=== PATIENT | female | born 1970 | race Caucasian/White ===

== ENCOUNTER 2020-10-25 17:09 | Observation (INO) | payer BC, SELFPAY ==
[2020-10-25] VITALS (9 sets, daily range): BP systolic 106–145; BP diastolic 71–88; PULSE 78–109; RESP 17–23; TEMP 36.6–37.2; O2SAT 95–99; BMI 22.7
--- NOTE | 2020-10-25 17:32 | CTR_ITS ---
PROCEDURE INFORMATION: Exam: CT Abdomen And Pelvis With Contrast Exam date and time: 10/25/2020 6:43 PM Age: 50 years old Clinical indication: Prior surgery; Surgery type: ; Patient HX: Fatigue x months; Additional info: Abd pain TECHNIQUE: Imaging protocol: Computed tomography of the abdomen and pelvis with contrast. Radiation optimization: All CT scans at this facility use at least one of these dose optimization techniques: automated exposure control; mA and/or kV adjustment per patient size (includes targeted exams where dose is matched to clinical indication); or iterative reconstruction. Contrast material: OMNI 300; Contrast volume: 95 ml; Contrast route: INTRAVENOUS (IV); COMPARISON: No relevant prior studies available. RADIATION DOSE METRICS: Total DLP (mGy-cm): 1033.94 FINDINGS: Lungs: Small area of mild emphysematous changes observed in the left lung base. The visualized lung bases are otherwise clear. Mediastinal space: A small hiatal hernia is present. Liver: Normal. No mass. Gallbladder and bile ducts: Multiple gallstones are present in the gallbladder. No biliary ductal dilatation. Pancreas: Normal. No ductal dilation. Spleen: Normal. No splenomegaly. Adrenal glands: Normal. No mass. Kidneys and ureters: Subcentimeter round hypodense lesion in the inferior pole of the left kidney is too small to accurately characterize but is likely benign. The kidneys appear normal. No hydronephrosis. Stomach and bowel: No intestinal obstruction. Diverticulosis coli is seen, without evidence of diverticulitis. Appendix: The appendix is normal. Intraperitoneal space: Unremarkable. No free air. No significant fluid collection. Vasculature: Unremarkable. No abdominal aortic aneurysm. Lymph nodes: Unremarkable. No enlarged lymph nodes. Urinary bladder: Unremarkable as visualized. Reproductive: A small fibroid is present in the anterior uterine body. Slight irregularity of the endometrial cavity is also seen which may be secondary to a submucosal fibroid. A small amount of fluid is present in the endometrial cavity. The cervix is mildly enlarged. A tampon is present in the vagina. The ovaries appear normal. Small bilateral ovarian cyst are appreciated (measuring up to 2.5 cm on the left and 2.8 cm on the right). Bones/joints: Unremarkable. No acute fracture. Soft tissues: 2.8 cm subcutaneous cystic structure in the medial right breast soft tissues may be a sebaceous cyst. CT/CT abdomen pelvis w con* [id number] IMPRESSION: 1. No acute abnormality is seen in the abdomen or pelvis. 2. Diverticulosis coli. 3. Cholelithiasis. 4. Small hiatal hernia. 5. Leiomyomatous uterus. The cervix is mildly enlarged. Correlate with recent gynecologic exam. COMMENTS: Consistent with the [employer] [employer]'s Incidental Findings Committee white paper (J Am Chilo Radiol 2018): Any incidental renal lesion less than 1 cm or classified as too small to characterize, or any incidental cystic renal lesion characterized as simple-appearing, is likely benign. No follow-up imaging is recommended for these lesions per consensus recommendations based on imaging criteria. Radiation Dose CTDIVOL = (mGy): DLP = 1033.94 (mGy-cm)
--- NOTE | 2020-10-25 17:39 | W.ED.WEAKNES ---
Documented by User: Wesley Gr DO 10/26/20 06:51 HPI - Weakness General: Chief complaint: Weakness Stated complaint: low blood? Time Seen by Provider: 10/25/20 17:31 History of Present Illness: HPI Narrative: 50-year-old female comes in complaining of generally feeling weak. She was seen at the therapy clinic earlier today and hemoglobin of 5.4 with hematocrit of 20. Her only blood loss is she has had very heavy periods for the last 3 days. She is not had this problem in the past she denies any medication melena hematemesis coffee-ground emesis no history of GI bleeds. No history of clot she is not on any anticoagulants. MD Complaint: generalized weakness Onset (ago): day(s) Duration: constant Severity: moderate Relieving factors: none Exacerbating factors: none Associated symptoms: Denies chest pain, chills, confusion, melena, decreased appetite, diaphoresis, dysuria, easy bruising, fever(s), headache(s), myalgias, nausea, rash, short of breath, syncope or vomiting Review of Systems Const: Denies: fever(s), chills or diaphoresis ENMT: Denies: throat pain, ear or mastoid pain, nasal discharge or nasal congestion Card: Denies: chest pain or syncope Resp: Denies: dyspnea, productive cough or non-productive cough GI: Denies: nausea, vomiting or melena : Denies: dysuria Skin/Breast: Denies: rash or pruritus Neuro: Denies: headache(s) or confusion Juan/Lymph: Denies: easy bruising PFSH ED PFSH: Medical History No pertinent past medical history Surgical History History of left oophorectomy Family History Father Diabetes Denies family history of Clotting disorder Bleeding disorder Social History Smoking and tobacco status: never smoked Second hand smoke exposure: No Alcohol intake: never Lives independently: Yes Marital status: service: No Current occupational status: employed Current occupation: [employer] History of recent travel: No Current gender identity: Female Special john needs: No Agree to transfusion: Yes Physical Exam Const: COMMON NORMALS: average body habitus, patient oriented x3 and alert GENERAL APPEARANCE: cooperative, comfortable, well kempt and well developed NUTRITIONAL APPEARANCE: obese ORIENTATION/CONSCIOUSNESS: Yes awake, Yes oriented to person and Yes oriented to place HENMT: COMMON NORMALS: normocephalic, atraumatic and EAC's normal HEAD & SCALP: normocephalic and atraumatic EXTERNAL AUDITORY CANAL: EAC's normal Neck/C-Spine: COMMON NORMALS: no meningeal signs Resp: COMMON NORMALS: normal respiratory effort, No retractions, No use of accessory muscles and clear to auscultation bilaterally AUSCULTATION: clear to auscultation bilaterally Cardio: COMMON NORMALS: regular rate and regular rhythm RATE: regular rate RHYTHM: regular rhythm HEART SOUNDS: no murmurs GI: COMMON NORMALS: Normal to inspection, nondistended, normoactive bowel sounds present, Soft to palpation and No hepatosplenomegaly present PALPATION: Yes Soft to palpation and Yes No hepatosplenomegaly present : COMMON NORMALS: Yes no CVA tenderness BLADDER/KIDNEY EXAM: Yes no CVA tenderness Back/Pelvis: COMMON NORMALS: no CVA tenderness LUMBAR SPINE/LOWER BACK: Yes normal to inspection Extremity: COMMON NORMALS: no clubbing, cyanosis or edema, no calf tenderness and no pedal edema Neuro: COMMON NORMALS: patient oriented x3 SENSORIUM/ORIENTATION: Yes alert, Yes oriented to person and Yes oriented to place MENINGEAL SIGNS: Yes no meningeal signs Psych: APPEARANCE: Yes well kempt Skin: COMMON NORMALS: no rashes or lesions noted and turgor normal GENERAL SKIN EXAM: no rashes or lesions noted and turgor normal Course Vital Signs: Vital signs: Vital Signs Temperature 98.8 F 10/26/20 04:30 Pulse Rate 75 10/26/20 04:30 Respiratory Rate 19 H 10/26/20 04:30 Blood Pressure 105/70 10/26/20 04:30 Pulse Oximetry 100 10/26/20 04:30 MDM - Weakness MDM Narrative: Medical decision making narrative: Care transferred to Dr. Negro at change of shift see his notes for final diagnosis disposition Lab Data: Labs: Lab Results 10/25/20 10/25/20 10/25/20 Range/Units 16:02 16:02 16:02 WBC 10.8 H (4.0-10.0) 10^3/ uL RBC 3.99 L (4.1-5.3) 10^6/u L Hgb 5.3 L* (11.5-15.3) g/dL Hct 23.4 L (37.0-47.0) % MCV 58.6 L (81-99) fL MCH 13.3 L (28.0-34.0) pg MCHC 22.6 L (30.0-36.0) g/dL RDW 23.4 H (12.1-15.1) % Plt Count 316 (130-400) 10^3/c mm MPV Not Reportable Neut % (Auto) 80.5 % Lymph % (Auto) 11.9 % [place] % (Auto) 5.4 % Eos % (Auto) 1.4 % Baso % (Auto) 0.4 % Neut # (Auto) 8.73 H (1.8-7.7) 10^3/u L Lymph # (Auto) 1.3 (0.8-4.8) 10^3/u L [place] # (Auto) 0.6 (0.2-0.9) 10^3/u L Eos # (Auto) 0.2 (0.0-0.8) 10^3/u L Baso # (Auto) 0.0 (0.0-0.1) 10^3/u L Nucleated RBC % (a uto) 0.2 % Nucleated RBCs # 0.0 /100WBC Giant Platelets Trace Anisocytosis 2+ H Microcytosis 1+ H Ovalocytes 1+ H PT 13.50 (12.1-14.9) SECO NDS INR 1.00 (0.8-1.2) APTT 26.2 (23.9-36.7) SECO NDS Sodium 134 L (136-145) mmol/L Potassium 3.7 (3.5-5.1) mmol/L Chloride 101 (98-107) mmol/L Carbon Dioxide 21 L (22-29) mmol/L Anion Gap 15.7 (5-19) BUN 13 (6-20) mg/dL Creatinine 0.5 (0.5-0.9) mg/dL GFR Calculation 130.1 H (90-130) mL/min Glucose 115 (65-115) mg/dL Calculated Osmolal ity 279 L (285-295) mOsm/k g Calcium 8.6 (8.5-10.5) mg/dL Total Bilirubin 0.3 (0.15-1.2) mg/dL AST 12 (0-32) U/L ALT 10 (0-33) U/L Alkaline Phosphata se 120 H (35-105) IU/L Total Protein 7.6 (6.6-8.7) g/dL Albumin 4.2 (3.5-5.2) g/dL Globulin 3.4 (1.3-4.6) g/dL Blood Type Rho(D) Type Antibody Screen Crossmatch 10/25/20 Range/Units 16:02 WBC (4.0-10.0) 10^3/ uL RBC (4.1-5.3) 10^6/u L Hgb (11.5-15.3) g/dL Hct (37.0-47.0) % MCV (81-99) fL MCH (28.0-34.0) pg MCHC (30.0-36.0) g/dL RDW (12.1-15.1) % Plt Count (130-400) 10^3/c mm MPV Neut % (Auto) % Lymph % (Auto) % [place] % (Auto) % Eos % (Auto) % Baso % (Auto) % Neut # (Auto) (1.8-7.7) 10^3/u L Lymph # (Auto) (0.8-4.8) 10^3/u L [place] # (Auto) (0.2-0.9) 10^3/u L Eos # (Auto) (0.0-0.8) 10^3/u L Baso # (Auto) (0.0-0.1) 10^3/u L Nucleated RBC % (a uto) % Nucleated RBCs # /100WBC Giant Platelets Anisocytosis Microcytosis Ovalocytes PT (12.1-14.9) SECO NDS INR (0.8-1.2) APTT (23.9-36.7) SECO NDS Sodium (136-145) mmol/L Potassium (3.5-5.1) mmol/L Chloride (98-107) mmol/L Carbon Dioxide (22-29) mmol/L Anion Gap (5-19) BUN (6-20) mg/dL Creatinine (0.5-0.9) mg/dL GFR Calculation (90-130) mL/min Glucose (65-115) mg/dL Calculated Osmolal ity (285-295) mOsm/k g Calcium (8.5-10.5) mg/dL Total Bilirubin (0.15-1.2) mg/dL AST (0-32) U/L ALT (0-33) U/L Alkaline Phosphata se (35-105) IU/L Total Protein (6.6-8.7) g/dL Albumin (3.5-5.2) g/dL Globulin (1.3-4.6) g/dL Blood Type O Positive Rho(D) Type Positive / 4+ Antibody Screen Negative Crossmatch See Detail Discharge Plan Discharge Patient Disposition: Placed in Observation Admit Provider: Stephany Cortés Clinical Impression: Anemia, Abnormal uterine bleeding (AUB), Uterine fibroid Coding Level of Care Code ED Supervisor [employer] Department for Chg Fwd Exam Comprehensive Documented by User: Hank Negro MD 10/25/20 19:32 HPI - Weakness General: Chief complaint: Weakness Stated complaint: low blood? Time Seen by Provider: 10/25/20 17:31 PFSH ED PFSH: Medical History No pertinent past medical history Surgical History History of left oophorectomy Family History Father Diabetes Denies family history of Clotting disorder Bleeding disorder Social History Smoking and tobacco status: never smoked Second hand smoke exposure: No Alcohol intake: never Lives independently: Yes Marital status: service: No Current occupational status: employed Current occupation: [employer] History of recent travel: No Current gender identity: Female Special john needs: No Agree to transfusion: Yes Course Vital Signs: Vital signs: Vital Signs Temperature 98.8 F 10/26/20 04:30 Pulse Rate 75 10/26/20 04:30 Respiratory Rate 19 H 10/26/20 04:30 Blood Pressure 105/70 10/26/20 04:30 Pulse Oximetry 100 10/26/20 04:30 MDM - Weakness MDM Narrative: Medical decision making narrative: Patient presents here with anemia likely from her vaginal bleeding. CT scan does show uterine fibroids. She is hemodynamically stable here. Will transfuse patient I spoke to Dr. Cortés of [facility] TECHNICIAN and will admit at this time. Lab Data: Labs: Lab Results 10/25/20 10/25/20 10/25/20 Range/Units 16:02 16:02 16:02 WBC 10.8 H (4.0-10.0) 10^3/ uL RBC 3.99 L (4.1-5.3) 10^6/u L Hgb 5.3 L* (11.5-15.3) g/dL Hct 23.4 L (37.0-47.0) % MCV 58.6 L (81-99) fL MCH 13.3 L (28.0-34.0) pg MCHC 22.6 L (30.0-36.0) g/dL RDW 23.4 H (12.1-15.1) % Plt Count 316 (130-400) 10^3/c mm MPV Not Reportable Neut % (Auto) 80.5 % Lymph % (Auto) 11.9 % [place] % (Auto) 5.4 % Eos % (Auto) 1.4 % Baso % (Auto) 0.4 % Neut # (Auto) 8.73 H (1.8-7.7) 10^3/u L Lymph # (Auto) 1.3 (0.8-4.8) 10^3/u L [place] # (Auto) 0.6 (0.2-0.9) 10^3/u L Eos # (Auto) 0.2 (0.0-0.8) 10^3/u L Baso # (Auto) 0.0 (0.0-0.1) 10^3/u L Nucleated RBC % (a uto) 0.2 % Nucleated RBCs # 0.0 /100WBC Giant Platelets Trace Anisocytosis 2+ H Microcytosis 1+ H Ovalocytes 1+ H PT 13.50 (12.1-14.9) SECO NDS INR 1.00 (0.8-1.2) APTT 26.2 (23.9-36.7) SECO NDS Sodium 134 L (136-145) mmol/L Potassium 3.7 (3.5-5.1) mmol/L Chloride 101 (98-107) mmol/L Carbon Dioxide 21 L (22-29) mmol/L Anion Gap 15.7 (5-19) BUN 13 (6-20) mg/dL Creatinine 0.5 (0.5-0.9) mg/dL GFR Calculation 130.1 H (90-130) mL/min Glucose 115 (65-115) mg/dL Calculated Osmolal ity 279 L (285-295) mOsm/k g Calcium 8.6 (8.5-10.5) mg/dL Total Bilirubin 0.3 (0.15-1.2) mg/dL AST 12 (0-32) U/L ALT 10 (0-33) U/L Alkaline Phosphata se 120 H (35-105) IU/L Total Protein 7.6 (6.6-8.7) g/dL Albumin 4.2 (3.5-5.2) g/dL Globulin 3.4 (1.3-4.6) g/dL Blood Type Rho(D) Type Antibody Screen Crossmatch 10/25/20 Range/Units 16:02 WBC (4.0-10.0) 10^3/ uL RBC (4.1-5.3) 10^6/u L Hgb (11.5-15.3) g/dL Hct (37.0-47.0) % MCV (81-99) fL MCH (28.0-34.0) pg MCHC (30.0-36.0) g/dL RDW (12.1-15.1) % Plt Count (130-400) 10^3/c mm MPV Neut % (Auto) % Lymph % (Auto) % [place] % (Auto) % Eos % (Auto) % Baso % (Auto) % Neut # (Auto) (1.8-7.7) 10^3/u L Lymph # (Auto) (0.8-4.8) 10^3/u L [place] # (Auto) (0.2-0.9) 10^3/u L Eos # (Auto) (0.0-0.8) 10^3/u L Baso # (Auto) (0.0-0.1) 10^3/u L Nucleated RBC % (a uto) % Nucleated RBCs # /100WBC Giant Platelets Anisocytosis Microcytosis Ovalocytes PT (12.1-14.9) SECO NDS INR (0.8-1.2) APTT (23.9-36.7) SECO NDS Sodium (136-145) mmol/L Potassium (3.5-5.1) mmol/L Chloride (98-107) mmol/L Carbon Dioxide (22-29) mmol/L Anion Gap (5-19) BUN (6-20) mg/dL Creatinine (0.5-0.9) mg/dL GFR Calculation (90-130) mL/min Glucose (65-115) mg/dL Calculated Osmolal ity (285-295) mOsm/k g Calcium (8.5-10.5) mg/dL Total Bilirubin (0.15-1.2) mg/dL AST (0-32) U/L ALT (0-33) U/L Alkaline Phosphata se (35-105) IU/L Total Protein (6.6-8.7) g/dL Albumin (3.5-5.2) g/dL Globulin (1.3-4.6) g/dL Blood Type O Positive Rho(D) Type Positive / 4+ Antibody Screen Negative Crossmatch See Detail Imaging Data^: CT Abd/Pel: Attestation: I personally reviewed and interpreted this imaging study as follows: Radiologist's impression: [address] [place] [address]. [place] [address] CT Scan Report Signed Patient: Dayan Lewis Unit #: [id number] : 1970 Age/Sex: 50 / F ADM Date: 10/25/20 Loc: ER Room/Bed: Attending Dr: Ordering Provider/Ordering MD: Wesley Gr DO Date of Service: 10/25/20 Procedure(s): CT abdomen pelvis w con* [id number] Accession Number(s): [id number] Report Number: [id number] PROCEDURE INFORMATION: Exam: CT Abdomen And Pelvis With Contrast Exam date and time: 10/25/2020 6:43 PM Age: 50 years old Clinical indication: Prior surgery; Surgery type: ; Patient HX: Fatigue x months; Additional info: Abd pain TECHNIQUE: Imaging protocol: Computed tomography of the abdomen and pelvis with contrast. Radiation optimization: All CT scans at this facility use at least one of these dose optimization techniques: automated exposure control; mA and/or kV adjustment per patient size (includes targeted exams where dose is matched to clinical indication); or iterative reconstruction. Contrast material: OMNI 300; Contrast volume: 95 ml; Contrast route: INTRAVENOUS (IV); COMPARISON: No relevant prior studies available. RADIATION DOSE METRICS: Total DLP (mGy-cm): 1033.94 FINDINGS: Lungs: Small area of mild emphysematous changes observed in the left lung base. The visualized lung bases are otherwise clear. Mediastinal space: A small hiatal hernia is present. Liver: Normal. No mass. Gallbladder and bile ducts: Multiple gallstones are present in the gallbladder. No biliary ductal dilatation. Pancreas: Normal. No ductal dilation. Spleen: Normal. No splenomegaly. Adrenal glands: Normal. No mass. Kidneys and ureters: Subcentimeter round hypodense lesion in the inferior pole of the left kidney is too small to accurately characterize but is likely benign. The kidneys appear normal. No hydronephrosis. Stomach and bowel: No intestinal obstruction. Diverticulosis coli is seen, without evidence of diverticulitis. Appendix: The appendix is normal. Intraperitoneal space: Unremarkable. No free air. No significant fluid collection. Vasculature: Unremarkable. No abdominal aortic aneurysm. Lymph nodes: Unremarkable. No enlarged lymph nodes. Urinary bladder: Unremarkable as visualized. Reproductive: A small fibroid is present in the anterior uterine body. Slight irregularity of the endometrial cavity is also seen which may be secondary to a submucosal fibroid. A small amount of fluid is present in the endometrial cavity. The cervix is mildly enlarged. A tampon is present in the vagina. The ovaries appear normal. Small bilateral ovarian cyst are appreciated (measuring up to 2.5 cm on the left and 2.8 cm on the right). Bones/joints: Unremarkable. No acute fracture. Soft tissues: 2.8 cm subcutaneous cystic structure in the medial right breast soft tissues may be a sebaceous cyst. CT/CT abdomen pelvis w con* [id number] IMPRESSION: 1. No acute abnormality is seen in the abdomen or pelvis. 2. Diverticulosis coli. 3. Cholelithiasis. 4. Small hiatal hernia. 5. Leiomyomatous uterus. The cervix is mildly enlarged. Correlate with recent gynecologic exam. Discharge Plan Discharge Patient Disposition: Placed in Observation Admit Provider: Stephany Cortés Clinical Impression: Anemia, Abnormal uterine bleeding (AUB), Uterine fibroid Coding Level of Care Code ED Supervisor Wall [employer] Department for Chg Fwd Exam Comprehensive
[2020-10-25 18:09] LABS: Basophils % 0.4 %; Eosinophils # 0.2 10^3/uL (0.0-0.8); Eosinophils % 1.4 %; Hematocrit 23.4 % (37.0-47.0); Lymphocytes # 1.3 10^3/uL (0.8-4.8); Lymphocytes % 11.9 %; Mean Corpuscular HGB Conc 22.6 g/dL (30.0-36.0); Mean Corpuscular Hemoglobin 13.3 pg (28.0-34.0); Mean Corpuscular Volume 58.6 fL (81-99); Monocytes # 0.6 10^3/uL (0.2-0.9); Monocytes % 5.4 %; Neutrophils # 8.73 10^3/uL (1.8-7.7); Neutrophils % 80.5 %; Nucleated Red Blood Cells % 0.2 %; Platelet Count 316 10^3/cmm (130-400); Red Blood Count 3.99 10^6/uL (4.1-5.3); Red Cell Distribution Width 23.4 % (12.1-15.1); White Blood Count 10.8 10^3/uL (4.0-10.0)
[2020-10-25 18:24] LABS: Hemoglobin 5.3 g/dL (11.5-15.3)
[2020-10-25 18:29] LABS: Partial Thromboplastin Time 26.2 SECONDS (23.9-36.7)
[2020-10-25 18:33] LABS: Alanine Aminotransferase 10 U/L (0-33); Albumin Level 4.2 g/dL (3.5-5.2); Alkaline Phosphatase 120 IU/L (35-105); Anion Gap 15.7 (5-19); Aspartate Amino Transferase 12 U/L (0-32); Blood Urea Nitrogen 13 mg/dL (6-20); Calcium 8.6 mg/dL (8.5-10.5); Carbon Dioxide 21 mmol/L (22-29); Chloride 101 mmol/L (98-107); Globulin 3.4 g/dL (1.3-4.6); Glomerular Filtration Rate 130.1 mL/min (90-130); Glucose 115 mg/dL (65-115); Osmolality Calculated 279 mOsm/kg (285-295); Potassium 3.7 mmol/L (3.5-5.1); Sodium 134 mmol/L (136-145); Total Bilirubin 0.3 mg/dL (0.15-1.2); Total Protein 7.6 g/dL (6.6-8.7)
[2020-10-25] MEDS: iohexol 300 mg/mL 100 mL Btl IV (18:43)
[2020-10-25 18:44] LABS: Slide Review Slide Review Perform
[2020-10-25 18:45] LABS: Add RBC Morph Yes; Anisocytosis 2+; Microcytosis 1+; Ovalocytes 1+; RBC Morph Comp No
[2020-10-25 18:46] LABS: Giant Platelets Trace
--- NOTE | 2020-10-25 20:26 | PC.NURSE ---
pt report called to Brooke GOMEZ in SBAR format.
[2020-10-25 20:39] LABS: Add Urine Microscopic? YES; Bilirubin Urine Neg (Negative); Blood Urine 2+ (Negative); Glucose Urine UA Norm (Normal); Ketones Urine Negative (Negative); Leukocyte Esterase Urine Trace (Negative); Nitrate Urine Negative (Negative); Protein Urine Trace (Negative); Specific Gravity, Urine 1.015 (1.005-1.030); Urine Appearance Clear (CLEAR); Urine Color Yellow (Yellow); Urobilinogen Urine Norm (Negative); pH Urine 6.5 (5-7)
[2020-10-25 20:40] LABS: Add Urine Culture? Yes; Bacteria Urine 4+ /hpf; Squamous Epithelial Cell Urine 0-4 /hpf (0-5)
[2020-10-25] MEDS: sodium chloride 0.9% 1,000 ML 999 ML IV (22:32)
[2020-10-26] VITALS (12 sets, daily range): BP systolic 99–124; BP diastolic 55–79; PULSE 73–85; RESP 18–22; TEMP 36.5–37.4; O2SAT 99–100
[2020-10-26] MEDS: sodium chloride 0.9% (100 ml) 100 ML 50 ML (00:16)
--- NOTE | 2020-10-26 06:25 | PC.NURSE ---
Pad Count Patient has changed pads twice this shift. Both pads were half saturated.
[2020-10-26 06:38] LABS: Basophils % 0.5 %; Eosinophils # 0.2 10^3/uL (0.0-0.8); Eosinophils % 2.1 %; Hematocrit 28.6 % (37.0-47.0); Lymphocytes # 1.4 10^3/uL (0.8-4.8); Lymphocytes % 16.1 %; Mean Corpuscular HGB Conc 26.2 g/dL (30.0-36.0); Monocytes # 0.7 10^3/uL (0.2-0.9); Monocytes % 7.8 %; Neutrophils # 6.15 10^3/uL (1.8-7.7); Neutrophils % 73.1 %; Nucleated Red Blood Cells % 0 %; Platelet Count 256 10^3/cmm (130-400); White Blood Count 8.4 10^3/uL (4.0-10.0)
[2020-10-26 06:48] LABS: Hemoglobin 7.5 g/dL (11.5-15.3)
--- NOTE | 2020-10-26 10:12 | P.DS_ITS ---
Discharge Providers Date of Admission: 10/25/20 19:29 Date of Discharge: October 26, 2020 Attending Provider at Admission: Stephany Cortés MD Attending Provider at Discharge: Stephany Cortés MD Primary Care Provider: PATRICIA Merino Diagnoses at Discharge Discharge Diagnosis (1) Anemia: Status: Acute (2) Uterine fibroid: Status: Acute (3) Abnormal uterine bleeding (AUB): Status: Acute Reason for Visit Reason for Visit: low blood? Hospital Course Hospital Course The patient was admitted for two units of type specific blood. She did well post transfusion. She had iron studies drawn and was ready for discharge. She has been scheduled for a pelvic ultrasound, an office visit with me to discuss hysterectomy and injectafer infusions times two at the infusion center. Discharge Data Data Completed and Pending: Completed Studies During Hospitalization Category Date Time Status CT abdomen pelvis w con* [id number] Stat Cat Scan 10/25/20 17:32 Completed Pending at discharge Category Date Time Status Immunochemical Fe laine OCB Routine Lab 10/25/20 17:31 Uncollected Urine Culture Sta t Lab 10/25/20 20:14 Received Labs from last 24 hours 10/26/20 10/25/20 10/25/20 06:17 20:14 16:02 WBC 8.4 RBC 4.40 Hgb 7.5 L D Hct 28.6 L MCV 65.0 L D MCH 17.0 L D MCHC 26.2 L D RDW 30.0 H Plt Count 256 MPV Not Reportable Neut % (Auto) 73.1 Lymph % (Auto) 16.1 [place] % (Auto) 7.8 Eos % (Auto) 2.1 Baso % (Auto) 0.5 Neut # (Auto) 6.15 Lymph # (Auto) 1.4 [place] # (Auto) 0.7 Eos # (Auto) 0.2 Baso # (Auto) 0.0 Nucleated RBC % (a uto) 0 Nucleated RBCs # 0.0 Giant Platelets Anisocytosis Microcytosis Ovalocytes PT INR APTT Sodium Potassium Chloride Carbon Dioxide Anion Gap BUN Creatinine GFR Calculation Glucose Calculated Osmolal ity Calcium Total Bilirubin AST ALT Alkaline Phosphata se Total Protein Albumin Globulin Urine Color Yellow Urine Appearance Clear Urine pH 6.5 Ur Specific Gravit y 1.015 Urine Protein Trace Urine Glucose (UA) Norm Urine Ketones Negative Urine Blood 2+ H Urine Nitrate Negative Urine Bilirubin Neg Urine Urobilinogen Norm Ur Leukocyte Carol ase Trace H Urine RBC 5-10 H Urine WBC 5-10 H Ur Squamous Epith Cells 0-4 H Amorphous Sediment Not Reportable Urine Bacteria 4+ H Blood Type O Positive Rho(D) Type Positive / 4+ Antibody Screen Negative Crossmatch See Detail 10/25/20 10/25/20 10/25/20 16:02 16:02 16:02 WBC 10.8 H RBC 3.99 L Hgb 5.3 L* Hct 23.4 L MCV 58.6 L MCH 13.3 L MCHC 22.6 L RDW 23.4 H Plt Count 316 MPV Not Reportable Neut % (Auto) 80.5 Lymph % (Auto) 11.9 [place] % (Auto) 5.4 Eos % (Auto) 1.4 Baso % (Auto) 0.4 Neut # (Auto) 8.73 H Lymph # (Auto) 1.3 [place] # (Auto) 0.6 Eos # (Auto) 0.2 Baso # (Auto) 0.0 Nucleated RBC % (a uto) 0.2 Nucleated RBCs # 0.0 Giant Platelets Trace Anisocytosis 2+ H Microcytosis 1+ H Ovalocytes 1+ H PT 13.50 INR 1.00 APTT 26.2 Sodium 134 L Potassium 3.7 Chloride 101 Carbon Dioxide 21 L Anion Gap 15.7 BUN 13 Creatinine 0.5 GFR Calculation 130.1 H Glucose 115 Calculated Osmolal ity 279 L Calcium 8.6 Total Bilirubin 0.3 AST 12 ALT 10 Alkaline Phosphata se 120 H Total Protein 7.6 Albumin 4.2 Globulin 3.4 Urine Color Urine Appearance Urine pH Ur Specific Gravit y Urine Protein Urine Glucose (UA) Urine Ketones Urine Blood Urine Nitrate Urine Bilirubin Urine Urobilinogen Ur Leukocyte Carol ase Urine RBC Urine WBC Ur Squamous Epith Cells Amorphous Sediment Urine Bacteria Blood Type Rho(D) Type Antibody Screen Crossmatch Vitals: Last Vital Signs Temp 98.1 F 10/26/20 08:00 Pulse 77 10/26/20 08:00 Resp 18 10/26/20 08:00 BP 124/75 10/26/20 08:00 Pulse Ox 99 10/26/20 08:00 Discharge Plan Discharge Patient Disposition: Home Condition: Stable Prescriptions: New Sprintec (28) 0.25-35 mg-mcg tablet 1 tab PO .complex Qty: 28 RF: 2 Discharge Orders: Discharge Order (Routine); Ordered 10/26/20 Ordered By: Stephany Cortés Referrals: Cami Tam FNP [Primary Care Provider] - 11/05/20 10:20 am Stephany Cortés MD [Physician] - 10/29/20 11:00 am (You have an appointment with Dr. Cortés on October 29 at 11:00.) Patient Instructions: Oral Contraceptives (By mouth), Uterine Fibroids (DC), Anemia (DC), Opioid Safety, Abnormal Uterine Bleeding Discharge Attestations Time Spent in Discharge Care*: less than 30 min Quality Metrics Clinical Quality Measures During this hospital stay, did patient experience: None Coding Level of Care Code Acute Chg FW DC note Diagnoses Anemia D64.9 Uterine fibroid D25.9 Abnormal uterine bleeding (AUB) N93.9
--- NOTE | 2020-10-26 10:12 | PM.HP ---
Providers/Chief Complaint Admitting Physician: Stephany Cortés MD Primary Care Provider: PATRICIA Merino Chief Complaint: low blood? History of Present Illness Dayan Lewis is a 50 year old female who presented to the ER for heavy menstrual bleeding. She was seen earlier at her PCP and had lab work done. It showed that her HGB was 5.3. She was sent from the office for a blood transfusion. She had a CT performed which showed that she had some fibroids in her uterus. The patient reports that this period has been heavier than normal, but she really doesn't have that bad of periods. She has regular monthly menses. She spots for 3 days, has heavier bleeding for 2 and then spots for two more days. She denies ever having spotting or bleeding between periods. She is not a tobacco user. She denies ever having any abnormal pap smears and reports her last pap was last year. She reports that she really doesn't feel that badly. She is completely surprised that her Hgb is that low. Review of Systems General: Reports: 10 or more systems reviewed and unremarkable except in HPI and below Medications/Allergies Home Medications Medication Instructions Recorded Confirmed Last Taken Type norgestimate-ethinyl estradiol 1 tab PO .complex #28 tab 10/26/20 Unknown Rx [Sprintec (28)] Allergies Allergy/AdvReac Type Severity Reaction Status Date / Time No Known Allergies Allergy Verified 10/25/20 13:54 PFSH Acute PFSH: Medical History No pertinent past medical history Surgical History History of left oophorectomy Family History Father Diabetes Denies family history of Clotting disorder Bleeding disorder Social History Smoking and tobacco status: never smoked Second hand smoke exposure: No Alcohol intake: never Lives independently: Yes Marital status: service: No Current occupational status: employed Current occupation: [employer] History of recent travel: No Current gender identity: Female Special john needs: No Agree to transfusion: Yes Female Reproductive History: Date of last menstrual period: 10/22/20 Vitals/I&O/Wt Last Vital Signs Temp 98.1 F 10/26/20 08:00 Pulse 77 10/26/20 08:00 Resp 18 10/26/20 08:00 BP 124/75 10/26/20 08:00 Pulse Ox 99 10/26/20 08:00 10/25/20 10/26/20 10/26/20 22:59 06:59 14:59 Intake Total 350 / 350 1650 / 2000 240 / 240 Output Total 600 / 600 1100 / 1700 Balance -250 / -250 550 / 300 240 / 240 Weight last 48 hrs Weight 141 lb Physical Exam Const: COMMON NORMALS: no acute distress, average body habitus, patient oriented x3, no limitations, healthy appearing, alert and well nourished Resp: COMMON NORMALS: normal respiratory effort EFFORT & INSPECTION: Yes able to speak in complete sentences GI: COMMON NORMALS: Soft to palpation and non-tender Extremity: COMMON NORMALS: no clubbing, cyanosis or edema Data : 10/26/20 06:17 10/25/20 16:02 A&P Assessment and plan (1) Anemia: transfuse 2 units of type specific blood iron studies today Status: Acute (2) Uterine fibroid: Status: Acute (3) Abnormal uterine bleeding (AUB): Status: Acute Attestations Medical Necessity Statement*: The patient is only admitted for observation for blood transfusion Coding Level of Care Code Acute Health And Wellness Instructor for g Fwd Diagnoses Anemia D64.9 Uterine fibroid D25.9 Abnormal uterine bleeding (AUB) N93.9
[2020-10-26 10:49] LABS: Ferritin 5 ng/mL (15-150); Iron 16 ug/dL (37-145); Percent Saturation 3.6 % (20-50); Total Iron Binding Capacity 437 mcg/dl; Unsaturated Iron Binding 421 ug/dL (112-347)
--- NOTE | 2020-10-26 11:30 | PC.NURSE ---
pt iv taken out and intact
--- NOTE | 2020-10-26 13:27 | PC.CHAP ---
Pastoral Care Encounter/Spiritual Assessment Type of Contact [] Declined horses or mules teamster visit [] Patient/Family/Request visit [] Outpatient visit [] Follow-up visit [] Physician referral [] Code/Alert [xx] Routine visit [] Staff referral [] Actively dying [] Patient sleeping [] Family support [] [] Out of room [] Palliative care [] [] Receiving care in room [] Pre-surgical visit [] Trauma [] Long length of stay [] ICU visit [] Other: Relational/Emotional Strength [xx] Patient feels connected with others/family/visitors/staff [] Distress [] Loneliness/isolation [] Abandonment Spirituality of Patient [xx] Person of Aslly [xx] Attends Christianity of their Sally [xx] Believes in Prayer [xx] Reads Bible or Congregation materials [] There are Spiritual issues to be addressed Hand Silvering Supervisor Interventions [xx] Prayer [xx] Active listening [xx] Non-anxious presence [] Spiritual/emotional support [] Crisis/trauma care [] Spiritual counseling [] Bereavement support [] Provided bereavement packet [xx] Provided Bible/devotional materials [] Provided toy/stuffed animal, coloring book to patient or family member [] Provided Communion [] Anointing/Tonasket [] Salvation [xx] Completed spiritual assessment [] Other: Impact on Illness or Injury [] Angry [] Fearful [] Anxious [] Often cries [] Exhaustion [] Unable to work [] Unable to attend protestant [] Unable to walk/stand [] Unable to read [] Unable to drive [] Unable to eat/drink [] Unable to sleep [] Unable to be with family [] Patient intubated [] Other: Summary present. [employer] devotional given to patient. Patient is being discharged. Family is having a 4 generation family reunion for Mother's Day and she is anxious to get home and start preparations. Time spent with patient 6 minutes
== END 2020-10-26 12:15 | disposition home or self-care (01) ==
LOC: ER 19:43 → MEDSURG 20:09
PROVIDERS: Family Medicine; Admitting Provider Obstetrics & Gynecology; Emergency Provider Emergency Medicine; PCP Nurse Practitioner Family; Visit Provider Obstetrics & Gynecology
DX: D64.9 Anemia, unspecified (principal); D25.9 Leiomyoma of uterus, unspecified; N93.9 Abnormal uterine and vaginal bleeding, unspecified
CPT/HCPCS: 36415; 36430; 74177; 80053; 80061; 81001; 82670; 82728; 83001; 83002; 83540; 83550; 84144; 84145; 84443; 85025; 85610; 85730; 86850; 86900; 86920; 87077; 87086; 87186; 96360; 99285; G0378; J7030; P9016; Q9967

== ENCOUNTER → 2020-10-30 11:36 | Day surgery (SDC) | payer BC, SELFPAY ==
[2020-10-30] MEDS: ferric carboxy (IVPB) 750 MG in sodium chloride 0.9% (100 ml) 100 ML 345 MG IV (12:45)
[2020-10-30 13:53] VITALS: BMI 21.7
[2020-10-30 13:56] VITALS: BP 128/63; PULSE 74; RESP 18; TEMP 36.9; O2SAT 98
[2020-10-30 14:00] LABS: Thyroid Stimulating Hormone 2.05 uIU/mL (0.27-4.20)
== END ==
PROVIDERS: PCP Nurse Practitioner Family; Visit Provider Obstetrics & Gynecology
DX: D25.9 Leiomyoma of uterus, unspecified (principal); N93.9 Abnormal uterine and vaginal bleeding, unspecified
CPT/HCPCS: 36415; 84443; 87635; 88305; 96365; 96366; J1439

== ENCOUNTER 2020-11-01 08:39 | Day surgery (SDC) | payer BC, SELFPAY ==
[2020-10-31 09:04] VITALS: BMI 22.6
[2020-10-31 09:29] LABS: Basophils % 0.2 %; Eosinophils # 0.1 10^3/uL (0.0-0.8); Eosinophils % 0.9 %; Hematocrit 30.9 % (37.0-47.0); Lymphocytes # 1.1 10^3/uL (0.8-4.8); Lymphocytes % 13.3 %; Mean Corpuscular HGB Conc 25.9 g/dL (30.0-36.0); Mean Corpuscular Hemoglobin 16.9 pg (28.0-34.0); Mean Corpuscular Volume 65.2 fL (81-99); Monocytes # 0.5 10^3/uL (0.2-0.9); Monocytes % 5.4 %; Neutrophils # 6.77 10^3/uL (1.8-7.7); Nucleated Red Blood Cells % 0 %; Platelet Count 302 10^3/cmm (130-400); Red Blood Count 4.74 10^6/uL (4.1-5.3); Red Cell Distribution Width 30.4 % (12.1-15.1); White Blood Count 8.5 10^3/uL (4.0-10.0)
--- NOTE | 2020-10-31 09:37 | P.ANESASSM_ITS ---
Pre-Anesthetic Assessment Pre-Anesthetic Assessment: Height/Weight: Height 1.68 m Weight 63.503 kg Preop Diagnosis: cervical fibroid Proposed Procedure: Operation Date: 11/01/20 11:10 Proposed Procedures p Myomectomy 95021 [id number](Not Applicable) - Stephany Cortés MD s Hysteroscopy(Not Applicable) - Stephany Cortés MD s Dilation And Curettage (D&C) with myosure(Not Applicable) - Stephany Cortés MD Familial anesthetic complications: None Social: Social History: No alcohol and No tobacco Exam: Pre-Anes Outpt Exam: alert, oriented x 3, clear to auscultation bilaterally and regular rate & rhythm Airway: Cervical ROM: WNL MP: 3 Dentition: Full Anesthetic Plan: ASA status: 1 Anesthesia: General Risk of > 500 ml blood loss (7ml/kg in children): No PFSH Anesthesia PFSH: Medical History (Updated 10/30/20 @ 17:24 by Stephany Cortés MD) No pertinent past medical history Surgical History (Updated 10/30/20 @ 09:17 by Carmencita Mratin LPN) History of left oophorectomy Family History (Updated 10/30/20 @ 09:18 by Carmencita Martin LPN) Father Diabetes Hyperlipidemia Hypertension Mother Hypertension Grandmother Stroke Paternal Denies family history of Ovarian cyst CAD (coronary artery disease) Clotting disorder Chronic kidney disease (CKD) Anesthesia complication Bleeding disorder Cancer Thyroid disease Social History (Updated 10/30/20 @ 09:18 by Carmencita Martin LPN) Smoking and tobacco status: never smoked Second hand smoke exposure: No Alcohol intake: never Lives independently: Yes Marital status: service: No Current occupational status: employed Current occupation: [employer] History of recent travel: No Current gender identity: Female Special john needs: No Agree to transfusion: Yes Female Reproductive History: Date of last menstrual period: 10/22/20 Data Anesthesia CBC & Chem 7: 10/31/20 09:22 Other Labs: Laboratory Results - last 48 hr 10/31/20 09:22 WBC 8.5 RBC 4.74 Hgb 8.0 L Hct 30.9 L MCV 65.2 L MCH 16.9 L MCHC 25.9 L RDW 30.4 H Plt Count 302 MPV Not Reportable Neut % (Auto) 80.0 Lymph % (Auto) 13.3 [place] % (Auto) 5.4 Eos % (Auto) 0.9 Baso % (Auto) 0.2 Neut # (Auto) 6.77 Lymph # (Auto) 1.1 Coal # (Auto) 0.5 Eos # (Auto) 0.1 Baso # (Auto) 0.0 Nucleated RBC % (auto) 0 Nucleated RBCs # 0.0 Cardiac Studies: No Data to Display
[2020-11-01 09:13] VITALS: BP 142/82; PULSE 84; RESP 18; TEMP 36.2; O2SAT 100
--- NOTE | 2020-11-01 09:18 | W.PM.OPSUD ---
Surgery/Procedure H&P Update DATE OF PROCEDURE: November 01, 2020 DATE H&P PERFORMED: 10/30/20 H&P UPDATE INFORMATION: I have reviewed H&P completed within last 30 days, I have examined patient prior to procedure and No changes to prior documentation PREOP DIAGNOSIS: cervical fibroid PLANNED PROCEDURE: Operation Date: 11/01/20 10:50 Proposed Procedures p Myomectomy [id number] [id number](Not Applicable) - Stephany Cortés MD s Hysteroscopy(Not Applicable) - Stephany Cortés MD s Dilation And Curettage (D&C) with myosure(Not Applicable) - Stephany Cortés MD
[2020-11-01 09:20] LABS: OR HCG Qualitative Urine Negative (Negative)
[2020-11-01] MEDS: ketorolac 30 mg/mL INJ IVP (09:45)
[2020-11-01] MEDS: sodium chloride 0.9% 1,000 ML 30 ML IV (09:47)
--- NOTE | 2020-11-01 10:02 | P.ANESUD_ITS ---
Pre-Anesthetic Update Pre-Anesthetic Assessment: Date of Surgery/Procedure: 11/01/20 Preop Roxi gnosis: cervical fibroid Proposed Procedure: Operation Date: 11/01/20 10:50 Proposed Procedures p Myomectomy [id number](Not Applicable) - Stephany Cortés MD s Hysteroscopy(Not Applicable) - Stephany Cortés MD s Dilation And Curettage (D&C) with myosure(Not Applicable) - Stephany Cortés MD Any changes to Pre-Anesthetic Assessment?: No Last Intake: Intake Last Liquid Date 10/31/20 Last Liquid Time 20:00 Last Solid Date 10/31/20 Last Solid Time 18:00 Labs Last 48hrs: Laboratory Results - last 48 hr 10/31/20 11/01/20 09:22 09:19 WBC 8.5 RBC 4.74 Hgb 8.0 L Hct 30.9 L MCV 65.2 L MCH 16.9 L MCHC 25.9 L RDW 30.4 H Plt Count 302 MPV Not Reportable Neut % (Auto) 80.0 Lymph % (Auto) 13.3 [place] % (Auto) 5.4 Eos % (Auto) 0.9 Baso % (Auto) 0.2 Neut # (Auto) 6.77 Lymph # (Auto) 1.1 [place] # (Auto) 0.5 Eos # (Auto) 0.1 Baso # (Auto) 0.0 Nucleated RBC % (a uto) 0 Nucleated RBCs # 0.0 Urine HCG, Qual Negative Vitals: Temperature 97.2 F L 11/01/20 09:13 Temperature Source Temporal Artery S can 11/01/20 09:13 Pulse Rate 84 11/01/20 09:13 Pulse Rhythm 11/01/20 09:13 Pulse Strength 3+ Normal 11/01/20 09:13 Respiratory Rate 18 11/01/20 09:13 Blood Pressure 142/82 11/01/20 09:13 Blood Pressure Deysi n 102 11/01/20 09:13 Pulse Oximetry 100 11/01/20 09:13 Oxygen Delivery Me thod 11/01/20 09:13 Exam: Pre-Anes Outpt Exam: alert, oriented x 3, clear to auscultation bilaterally and regular rate & rhythm Cardiac Studies: No Data to Display
[2020-11-01 11:57] VITALS: BP 126/72; PULSE 99; RESP 12; TEMP 36.8; O2SAT 98
--- NOTE | 2020-11-01 11:59 | P.PCN_ITS ---
PACU note PACU note: VSS, Good respiratory effort, report to GLUE JOINTER OPERATOR Post-Anesthesia Exam: awake
--- NOTE | 2020-11-01 11:59 | PM.PACU ---
PACU note PACU note: VSS, Good respiratory effort, report to GEOPHYSICS TEACHER Post-Anesthesia Exam: awake
[2020-11-01 12:00] VITALS: BP 121/71; PULSE 94; RESP 14; O2SAT 99
[2020-11-01 12:05] VITALS: BP 122/75; PULSE 86; RESP 14; TEMP 37; O2SAT 98
--- NOTE | 2020-11-01 12:05 | P.OP_ITS ---
Operative Report Date of procedure: November 01, 2020 Pre-op Diagnosis: prolapsing cervical fibroid Post-op diagnosis: same Post-op Findings: many endometrial fibroids Procedure Done: hysteroscopy, dilation and curettage with myosure, myomectomy Specimens removed/disposition: endometrial curettings, endometrial myoma Pathology: other Surgeon: Stephany Cortés Anesthesia: General Estimated blood loss (mL): 150 IV fluids (mL): 800 Complications: post hysteroscopy bleeding controlled with Tranexamic acid and pitocin. vaginal packing placed Findings: 5 cm uterine fibroid prolapsing through cervix, multiple submucosal fibroids and excessive tissue in uterus. Condition: stable Disposition: PACU Procedure: The patient was taken to the operating room where monitored anesthesia was administered and to be adequate. She was prepped and draped in the normal sterile fashion in the dorsal lithotomy position in [facility]. A weighted speculum was placed into the vagina and the anterior lip of the cervix grasped with a single-tooth tenaculum. There was approximately 5 cm fibroid prolapsing through the cervix. The fibroid was grasped with a tenaculum and an Endoloop was placed on it and tightened down. The fibroid was then cut off of its base and removed. The cervix was already quite dilated and so 3 separate tenaculums were placed to close the cervix. The hysteroscope was advanced into the endometrial cavity. There was excessive tissue and masses visualized. The MyoSure device was activated and the tissue was removed. All instruments were removed. The patient had some brisk bleeding post procedure. There was a cervical laceration which was repaired with vicryl in a running, locked fashion. There was still bleeding. A dose of tranexamic acid was given as well as pitocin was started. She bleeding abruptly stopped, however vaginal packing was placed to hold pressure on the uterus and cervix. She will remove the packing prior to discharge. The patient tolerated the procedure well. Sponge lap and needle counts were correct x3. She was taken to the recovery room in stable condition.
[2020-11-01 12:09] VITALS: BP 124/87; PULSE 88; RESP 16; TEMP 36.9; O2SAT 98
--- NOTE | 2020-11-01 12:17 | P.DS_ITS ---
Discharge Providers Date of Discharge: November 01, 2020 Attending Provider at Discharge: Stephany Cortés MD Primary Care Provider: PATRICIA Merino Diagnoses at Discharge Discharge Diagnosis (1) Abnormal uterine bleeding (AUB): Status: Acute (2) Uterine fibroid: Status: Acute (3) Leiomyoma of cervix: Status: Acute Reason for Visit Reason for Visit: myomectomy, hysteroscopy Hospital Course Hospital Course The patient was admitted for surgery. She had some bleeding directly posto peratively and was given tranexamic acid and pitocin as well as vaginal packing. The bleeding ceased. She was discharged home in stable condition. Physical Exam Urinary Catheter Management^: Straight: Cath Placed During This Visit: no Discharge Data Data Completed and Pending: Pending at discharge Category Date Time Status ES surgery / GI i mages Routine Exams 11/01/20 06:48 Ordered Pathology: Surgic al [PTH] Routine Pth 11/01/20 12:00 Ordered Labs from last 24 hours 11/01/20 09:19 Urine HCG, Qual Negative Vitals: Last Vital Signs Temp 98.5 F 11/01/20 12:09 Pulse 88 11/01/20 12:09 Resp 16 11/01/20 12:09 BP 124/87 11/01/20 12:09 Pulse Ox 98 11/01/20 12:09 Discharge Plan Discharge Patient Disposition: Home Condition: Stable Prescriptions: Continued norgestimate-ethinyl estradiol [Sprintec (28)] 0.25-35 mg-mcg tablet 1 tab PO .complex Qty: 28 RF: 2 Discharge Orders: Discharge Order (Routine); Ordered 11/01/20 Ordered By: Stephany Cortés Discharge Attestations Time Spent in Discharge Care*: less than 30 min Quality Metrics Clinical Quality Measures During this hospital stay, did patient experience: None Coding Level of Care Code Acute Chg FW DC note Diagnoses Abnormal uterine bleeding (AUB) N93.9 Uterine fibroid D25.9 Leiomyoma of cervix D25.9
[2020-11-01 12:32] VITALS: BP 126/76; PULSE 80; RESP 16; TEMP 37; O2SAT 98
--- NOTE | 2020-11-01 12:44 | SUR.PHASEII ---
packing removed prior to patient discharge. Patient voided 200cc. Tolerated well.
--- NOTE | 2020-11-01 17:59 | ANE.PACU2 ---
Inpatient post-anesthesia follow up: Airway intact: Yes Vital signs: Temperature 98.6 F Pulse Rate 80 Respiratory Rate 16 Blood Pressure 126/76 Pulse Oximetry 98 Oxygen Delivery Me thod Room Air Oxygen Flow Rate Fraction of Inspir ed Oxygen Hydration adequate: Yes Nausea and vomiting: No Pain level: 3 Mental status: Baseline
== END 2020-11-01 13:14 | disposition home or self-care (01) ==
PROVIDERS: PCP Nurse Practitioner Family; Visit Provider Obstetrics & Gynecology
PROC: (CPT 58558; principal; 2020-11-01 10:40)
PROC: (CPT 58120; 2020-11-01 10:40)
PROC: 0UDB8ZZ Extraction of Endometrium, Via Natural or Artificial Opening Endoscopic (ICD-10-PCS; CPT 58558; 2020-11-01 10:40)
DX: D25.9 Leiomyoma of uterus, unspecified (principal); N93.9 Abnormal uterine and vaginal bleeding, unspecified
CPT/HCPCS: 58558; 36415; 84703; 85025; 88305; 96365; 96374; J0330; J0690; J1885; J2405; J2704; J3010; J3490; J7030

== ENCOUNTER → 2020-11-05 10:08 | Outpatient (BNVA) | payer BC, SELFPAY | PROVIDERS: PCP Nurse Practitioner Family; Visit Provider Nurse Practitioner Family | DX: N93.9 Abnormal uterine and vaginal bleeding, unspecified (principal) | CPT/HCPCS: 85025 ==

== ENCOUNTER → 2020-11-06 10:32 | Day surgery (SDC) | payer BC, SELFPAY ==
[2020-11-06] MEDS: ferric carboxy (IVPB) 750 MG in sodium chloride 0.9% (100 ml) 100 ML 345 MG IV (10:54)
[2020-11-06 11:00] VITALS: BP 112/76; PULSE 77; RESP 18; TEMP 36.8; O2SAT 99
== END ==
PROVIDERS: PCP Nurse Practitioner Family; Visit Provider Obstetrics & Gynecology
DX: D64.9 Anemia, unspecified (principal)
CPT/HCPCS: 96365; J1439

== ENCOUNTER → 2020-11-08 08:51 | Outpatient (BNVA) | payer BC, SELFPAY | PROVIDERS: PCP Nurse Practitioner Family; Visit Provider Obstetrics & Gynecology | DX: N93.9 Abnormal uterine and vaginal bleeding, unspecified (principal); Z90.721 Acquired absence of ovaries, unilateral; D25.9 Leiomyoma of uterus, unspecified; N80.0 Endometriosis of uterus | CPT/HCPCS: 76830 ==

== ENCOUNTER → 2020-12-05 09:43 | Outpatient (BNVA) | payer BC, SELFPAY | PROVIDERS: PCP Nurse Practitioner Family; Visit Provider Obstetrics & Gynecology | DX: N80.0 Endometriosis of uterus (principal); D25.9 Leiomyoma of uterus, unspecified; D64.9 Anemia, unspecified; N92.0 Excessive and frequent menstruation with regular cycle; Z11.52 Encounter for screening for COVID-19 | CPT/HCPCS: 87635 ==

== ENCOUNTER 2020-12-11 08:54 | Observation (INO) | payer BC, SELFPAY ==
[2020-12-06 13:32] VITALS: BMI 23.3
[2020-12-06 14:00] LABS: Basophils % 0.3 %; Eosinophils # 0.2 10^3/uL (0.0-0.8); Hematocrit 38.4 % (37.0-47.0); Hemoglobin 12.3 g/dL (11.5-15.3); Lymphocytes # 1.3 10^3/uL (0.8-4.8); Lymphocytes % 18.8 %; Mean Corpuscular Hemoglobin 25.9 pg (28.0-34.0); Mean Corpuscular Volume 80.8 fL (81-99); Monocytes # 0.4 10^3/uL (0.2-0.9); Monocytes % 5.2 %; Neutrophils # 5.05 10^3/uL (1.8-7.7); Neutrophils % 72.4 %; Nucleated Red Blood Cells % 0 %; Platelet Count 263 10^3/cmm (130-400); Red Blood Count 4.75 10^6/uL (4.1-5.3)
[2020-12-06 14:29] LABS: Anion Gap 13.9 (5-19); Blood Urea Nitrogen 8 mg/dL (6-20); Calcium 8.4 mg/dL (8.5-10.5); Carbon Dioxide 23 mmol/L (22-29); Chloride 106 mmol/L (98-107); Glomerular Filtration Rate 168.3 mL/min (90-130); Glucose 97 mg/dL (65-115); Osmolality Calculated 286 mOsm/kg (285-295); Potassium 3.9 mmol/L (3.5-5.1); Sodium 139 mmol/L (136-145)
[2020-12-06 15:28] LABS: Slide Review Slide Review Perform
[2020-12-11] VITALS (18 sets, daily range): BP systolic 102–149; BP diastolic 59–94; PULSE 56–81; RESP 15–19; TEMP 36.3–36.7; O2SAT 96–100
[2020-12-11] MEDS: sodium chloride 0.9% 1,000 ML 30 ML IV (06:17)
[2020-12-11] MEDS: acetaminophen 1,000 MG/100 ML PIGGYBACK 400 MG IV (06:17)
[2020-12-11] MEDS: CELEcoxib 200 mg Capsule 400 MG PO (06:20)
[2020-12-11] MEDS: ketorolac 30 mg/mL INJ IVP ×3 (06:22→18:35)
[2020-12-11] MEDS: gabapentin 300 mg Capsule PO (06:22)
--- NOTE | 2020-12-11 06:28 | P.ANESASSM_ITS ---
Pre-Anesthetic Assessment Pre-Anesthetic Assessment: Height/Weight: Height 1.65 m Weight 63.503 kg Temp Pulse Resp BP Pulse Ox 98.1 F 81 18 149/94 98 12/11/20 06:01 12/11/20 06:01 12/11/20 06:01 12/11/20 06:01 12/11/20 06:01 Preop Diagnosis: abnormal uterine bleeding, severe anemia Proposed Procedure: Operation Date: 12/11/20 07:00 Proposed Procedures p Total Vaginal Hysterectomy 55978 D25.9 N80.0 N92.0 D64.9(Not Applicable) - Stephany Cortés MD s bilateral Salpingo Oophorectomy (Open)(Bilateral) - Stephany Cortés MD Familial anesthetic complications: None Was Beta Bing taken within 24 h ours: N/A Was Clonidine taken within 24 hours: N/A Last intake: Intake Last Liquid Date 12/10/20 Last Liquid Time 20:00 Last Solid Date 12/10/20 Last Solid Time 18:00 Social: Social History: No alcohol and No tobacco Exam: Pre-Anes Outpt Exam: alert, oriented x 3, clear to auscultation bilate rally and regular rate & rhythm Airway: Cervical ROM: WNL MP: 3 Dentition: Full Anesthetic Plan: ASA status: 1 Anesthesia: General Risk of > 500 ml blood loss (7ml/kg in children): No Meds/Allergies Current Medications: Current Medications Generic Name Dose Route Start Last Admin Trade Name Freq PRN Reason Stop Dose Admin Sodium Chloride 1,000 mls @ 30 ml s/hr 12/11/20 06:00 12/11/20 06:17 Sodium Chloride 0.9% IV 12/12/20 05:59 30 mls/hr .Q24H LILLI Administration PFSH Anesthesia PFSH: Medical History No pertinent past medical history Surgical History History of left oophorectomy Family History Father Diabetes Hyperlipidemia Hypertension Mother Hypertension Grandmother Stroke Paternal Denies family history of Ovarian cyst CAD (coronary artery disease) Clotting disorder Chronic kidney disease (CKD) Anesthesia complication Bleeding disorder Cancer Thyroid disease Social History (Updated 12/06/20 @ 12:43 by Carmencita Martin LPN) Smoking and tobacco status: never smoked Alcohol intake: never Female Reproductive History: Date of last menstrual period: 12/02/20 Data Anesthesia CBC & Chem 7: 12/06/20 13:50 12/06/20 13:50 Cardiac Studies: No Data to Display
[2020-12-11 06:57] LABS: OR HCG Qualitative Urine Negative (Negative)
[2020-12-11] MEDS: ceFOXitin 2,000 MG in sodium chloride 0.9% (plus) 50 ML 100 MG IV (07:08)
--- NOTE | 2020-12-11 07:08 | W.PM.OPSUD ---
Surgery/Procedure H&P Update DATE OF PROCEDURE: December 11, 2020 DATE H&P PERFORMED: 12/06/20 H&P UPDATE INFORMATION: I have reviewed H&P completed within last 30 days, I have examined patient prior to procedure and No changes to prior documentation PREOP DIAGNOSIS: abnormal uterine bleeding, severe anemia PLANNED PROCEDURE: Operation Date: 12/11/20 07:00 Proposed Procedures p Total Vaginal Hysterectomy 42655 D25.9 N80.0 N92.0 D64.9(Not Applicable) - Stephany Cortés MD s bilateral Salpingo Oophorectomy (Open)(Bilateral) - Stephany Cortés MD
[2020-12-11] MEDS: vasopressin 20 unit/mL INJ 4 UNIT INJECTION (07:39)
--- NOTE | 2020-12-11 08:39 | PM.OP ---
Operative Report Date of procedure: December 11, 2020 Pre-op Diagnosis: abnormal uterine bleeding, severe anemia Post-op diagnosis: same Post-op Findings: 8 week sized uterus. Normal appearing right ovary. No discernable fallopian tubes Procedure Done: total vaginal hysterectomy with cystoscopy Specimens removed/disposition: uterus to pathology Surgeon: Stephany Cortés Anesthesia: General Estimated blood loss (mL): 75 IV fluids (mL): 1,200 Urine output (mL): 350 Complications: none Condition: stable Disposition: PACU Brief History: The patient presented to the ER with complaints of severe vaginal bleeding. She was admitted for severe anemia and received blood products. The was seen in the office for an EMB and found to have a large fibroid delivering through her cervix. She was taken to surgery a couple of days later and the fibroid removed. She continued to have bleeding and was scheduled for a vaginal hysterectomy Procedure: The patient was taken to the operating room where general anesthesia was administered and found to be adequate. She was prepped and draped in the normal sterile fashion in the dorsal lithotomy position in [facility]. A Owen catheter was placed. A weighted speculum was placed into the vagina and the anterior and posterior lip of the cervix was grasped with a Zee tenaculum. 5 mL of dilute Pitressin was injected at the vesicovaginal junction. A circumferential incision was made at the vesicovaginal junction and the vaginal mucosa reflected cephalad. The posterior peritoneum was entered sharply with the Metzenbaum scissors and the long weighted speculum replaced. Using the Jose Antonio clamps the uterosacral ligaments were clamped cut and suture-ligated. Then sequentially the uterine arteries and cardinal ligaments were clamped cut and suture-ligated. A single-tooth tenaculum was used to deliver the uterus. The utero-ovarian ligaments were clamped cut and suture-ligated bilaterally and the specimen was removed. The bilateral fallopian tubes could not be visualized. The right ovary was present and appeared normal. The left ovary had previously been removed. The peritoneum was closed with a pursestring using 2-0 Vicryl. The vaginal cuff was closed with 0 Vicryl in a running locked pattern incorporating the uterosacral ligaments into the lateral aspects of the vaginal cuff. The Owen catheter was removed and the cystoscope advanced into the bladder. The patient was given indigo carmine and bilateral spill was noted. There were no injuries or deficits noted in the bladder. The cystoscope was removed and the Owen was replaced. Vaginal packing was placed for good hemostasis. Tolerated the procedure well. Sponge lap and needle counts were correct x3. She was taken to the recovery room in stable condition.
--- NOTE | 2020-12-11 08:58 | SUR.PHASEI ---
PT TO PACU SLEEPY AWAKES TO VOICE, DENIES PAIN AND NAUSEA, IV PATENT TO LT HAND MELVIN PAD D/I BILAT SCDS ON.
--- NOTE | 2020-12-11 09:38 | SUR.PHASEI ---
0923 PT AWAKE ALERT TO OB PER CART PT REY IN W/C AND TAKEN WITH PT TO OB. PT AWAKE MOVES SELF TO BED DENIES PAIN AND NAUSEA. VSS.
[2020-12-11] MEDS: acetaminophen 325 mg Tablet 650 MG PO (11:14)
[2020-12-11] MEDS: HYDROcodone-acetaminophen 5-325 mg Tablet PO ×2 (13:24→22:45)
[2020-12-11] MEDS: dextrose 5%-lactated ringers 1,000 ML 125 ML IV ×2 (13:30→22:45)
--- NOTE | 2020-12-11 15:53 | ANE.PACU2 ---
Inpatient post-anesthesia follow up: Airway intact: Yes Vital signs: Temperature 97.5 F Pulse Rate 64 Respiratory Rate 16 Blood Pressure 113/64 Pulse Oximetry 100 Oxygen Delivery Me thod Room Air Oxygen Flow Rate 3 Fraction of Inspir ed Oxygen Hydration adequate: Yes Nausea and vomiting: No Pain level: 2 Mental status: Baseline
[2020-12-11] MEDS: docusate sodium 100 mg Capsule PO (18:35)
[2020-12-12] MEDS: ketorolac 30 mg/mL INJ IVP ×2 (01:16→07:36)
[2020-12-12 05:30] VITALS: BP 109/69; PULSE 76; RESP 15; TEMP 36.7; O2SAT 98
[2020-12-12 05:41] LABS: Hematocrit 33.9 % (37.0-47.0); Hemoglobin 10.6 g/dL (11.5-15.3); Mean Corpuscular HGB Conc 31.3 g/dL (30.0-36.0); Mean Corpuscular Hemoglobin 26.5 pg (28.0-34.0); Mean Corpuscular Volume 84.8 fL (81-99); Platelet Count 290 10^3/cmm (130-400); White Blood Count 9.5 10^3/uL (4.0-10.0)
--- NOTE | 2020-12-12 07:57 | PC.NURSE ---
Vaginal packing removed without difficulty at this time. Small amount of bleeding noted on packing, patient tolerated removal well.
[2020-12-12] MEDS: docusate sodium 100 mg Capsule PO (09:20)
--- NOTE | 2020-12-12 10:40 | PM.DCS ---
Discharge Providers Date of Admission: 12/11/20 08:54 Date of Discharge: December 12, 2020 Attending Provider at Admission: Stephany Cortés MD Attending Provider at Discharge: Stephany Cortés MD Primary Care Provider: PATRICIA Merino Diagnoses at Discharge Discharge Diagnosis (1) Postoperative state: Status: Acute Reason for Visit Reason for Visit: total vaginal hysterectomy Hospital Course Hospital Course The patient was admitted for surgery. She did well postoperatively and was ready for discharge on day #1 Physical Exam Narrative: EXAM NARRATIVE: The patient is doing well this morning. She is ambulating, tolerating a regular diet and has no pain. Const: COMMON NORMALS: no acute distress, average body habitus, patient oriented x3, no limitations, healthy appearing, alert and well nourished GENERAL APPEARANCE: cooperative, comfortable, well kempt and well developed ORIENTATION/CONSCIOUSNESS: Yes awake, Yes oriented to person, Yes oriented to place and Yes oriented to time Resp: COMMON NORMALS: normal respiratory effort and No use of accessory muscles Extremity: COMMON NORMALS: no joint enlargement, no clubbing, cyanosis or edema and no calf tenderness Neuro: COMMON NORMALS: patient oriented x3 SENSORIUM/ORIENTATION: Yes alert, Yes oriented to person, Yes oriented to place and Yes oriented to time Psych: COMMON NORMALS: mental status grossly normal and cooperative APPEARANCE: Yes grossly normal and Yes well kempt ATTITUDE: Yes calm and Yes engaged Urinary Catheter Management^: Owen: Cath Placed During This Visit: yes, but has since been removed by the nurse Reason for Continuing Indwelling Catheter: Decision to DC Catheter Urinary Catheter Date of Insertion: 12/11/20 Urinary Catheter Time of Insertion: 07:35 Date Urinary Catheter Removed: 12/12/20 Time Urinary Catheter Discontinued: 07:45 Discharge Data Data Completed and Pending: Pending at discharge Category Date Time Status Pathology: Surgic al [PTH] Routine Pth 12/11/20 08:39 Received Labs from last 24 hours 12/12/20 05:30 WBC 9.5 RBC 4.00 L Hgb 10.6 L Hct 33.9 L MCV 84.8 MCH 26.5 L MCHC 31.3 RDW Not Reportable Plt Count 290 MPV Not Reportable Vitals: Last Vital Signs Temp 98.1 F 12/12/20 05:30 Pulse 76 12/12/20 05:30 Resp 15 12/12/20 05:30 BP 109/69 12/12/20 05:30 Pulse Ox 98 12/12/20 05:30 Discharge Plan Discharge Patient Disposition: Home Condition: Stable Prescriptions: New hydrocodone-acetaminophen 5-325 mg Tablet 1 - 2 tab PO Q6H PRN (Reason: Moderate To Severe Pain) Qty: 12 RF: 0 Discontinued norgestimate-ethinyl estradiol [Sprintec (28)] 0.25-35 mg-mcg tablet 1 tab PO .complex Qty: 28 RF: 2 Discharge Orders: Discharge Order (Routine); Ordered 12/12/20 Ordered By: Stephany Cortés Referrals: Stephany Cortés MD [Physician] - 12/17/20 10:30 am (Your 1 week post-op appointment is scheduled for 12/17/20 @10:30. Your 6 week post-op appointment is scheduled for 01/21/21 @10:30.) Patient Instructions: Vaginal Hysterectomy (DC), OB Discharge Report, OB Food/Drug Interaction Guide, Opioid Safety Discharge Attestations Time Spent in Discharge Care*: less than 30 min Quality Metrics Clinical Quality Measures During this hospital stay, did patient experience: None Coding Level of Care Code Acute Chg FW DC note Diagnoses Postoperative state Z98.890
[2020-12-12 10:55] VITALS: BP 120/79; PULSE 82; RESP 18; TEMP 36.9; O2SAT 99
== END 2020-12-12 11:04 | disposition home or self-care (01) ==
LOC: OBGYN 08:54
PROVIDERS: Admitting Provider Obstetrics & Gynecology; PCP Nurse Practitioner Family; Visit Provider Obstetrics & Gynecology
PROC: (CPT 58260; principal; 2020-12-11 07:00)
PROC: 0TJB8ZZ Inspection of Bladder, Via Natural or Artificial Opening Endoscopic (ICD-10-PCS; CPT 52000; 2020-12-11 07:00)
DX: N93.9 Abnormal uterine and vaginal bleeding, unspecified (principal); D64.9 Anemia, unspecified; Z82.49 Family history of ischemic heart disease and other diseases of the circulatory system; Z83.3 Family history of diabetes mellitus
CPT/HCPCS: 58260; 36415; 80048; 84703; 85025; 85027; 87077; 87086; 87186; 88307; 96365; 96372; G0378; J0690; J0694; J1100; J1885; J2405; J2704; J2710; J3010; J3490; J7030